=== PATIENT | female | born 1995 | race Caucasian/White ===

== ENCOUNTER 2024-08-17 11:54 | Outpatient (OUT) | payer BC, SELFPAY ==
--- OUTSIDE RECORDS SUMMARY | 2023-04-09 10:30 | XMS_ITS ---
Author Organization [facility] in [place] Address [address] [place] [address] Care Team Providers Care Research Administrator Name Role Phone Crow Craig Primary Care Provider ROMEL CRAIG Unavailable [phone] Allergies No Known Allergies REASON FOR VISIT sinus pressure Medications Medication SIG (Take, Route, Frequency, Duration) Notes Start Date End Date Status Amoxicillin-Pot Clavulanate 875-125 MG 1 tablet Orally every 12 hrs for 10 day(s) 04/09/2023 Active Multivitamin - 1 tablet Orally Once a day Active Social History Tobacco Use: Social History Observation Description Date Details (start date - stop date) Never Smoker NA - NA Tobacco Use/Smoking Question Answer Notes Patient is a nonsmoker Alcohol Screen (Audit-C) Question Answer Notes Did you have a drink contain ing alcohol in the past year? Yes How often did you have 6 or more drinks on one occasion in the past year? Never (0 point) How many drinks did you have on a typical day when you were drinking in the past year? 3 or 4 drinks (1 point) How often did you have a dri nk containing alcohol in the past year? Monthly (2 points) Points 3 Interpretation Positive Problems Problem Type SNOMED Code ICD Code Onset Dates Problem Status W/U Status Risk Notes Problem Acute sinusitis (J01.90) Active confirmed Vital Signs Blood pressure systolic 132 mm Hg 04/09/19 24 Blood pressure diastolic 82 mm Hg 024 Height 62 in 04/09/2023 Weight 204 lbs 04/09/2023 BMI 37.31 kg/m2 04/09/2023 Encounters Encounter Location Date Provider Diagnosis [facility] [address] [place] [facility] [address] 04/09/2023 ROMEL CRAIG Acute sinusitis J01.90 Assessments Encounter Date Diagnosis (ICD Code) Assessment Notes Treatment Notes Treatment Clinical Notes Section Notes 04/09/2023 Acute sinusitis (ICD-10 - J01.90) Plan Of Treatment Medication Medication Name Sig Start Date Stop Date Notes Amoxicillin-Pot Clavulanate 875-125 MG 1 tablet Orally every 12 hrs for 10 day(s) 04/09/2023 Next Appt Details Provider Name:Crow Craig, 02:00:00 PM, [address] [facility], [place], [address], Progress Notes * Monie LEWIS DDOB: (27 yo F)Acc No.[id number]:04/09/2023 Progress Note Patient: Cristal poe Robertmelissa Andrade Provider: Lupe Craig M.D. :1995 A ge:27 Y S ex:Female Date:04/09/2023 Address:[address] [place] [address], [id number] Check In:02:29 PM ESTCheck O ut:03:14 PM EST Subjective: * Chief Complaints: * S inus pressure * HPI: D epression Screening: sinsu pressure- not muc draiage - n o fevers - some dizziness. PHQ-2 (2015 Edition) L ittle interest or pleasure in doing things??Several days F eeling down, depressed, or hopeless? N ot at all T otal Score 1 * ROS: E ENT: hoarseness s ee hpi. G eneral/Constitutional: Sweats: D enies. F atigue d enies. S leep problems d enies. A norexia d enies. M alaise d enies. W eight loss d enies.?Fatigue or Weakness d enies. F ever or Chills d enies. C ardiovascular: Shortness of Breath w/lying flat d enies. L ightheadedness/dizziness d enies. C hest tightness/ heavy pressure d enies. S welling of legs, ankles, or feet d enies. W aking up with shortness of breath d enies. C hest pain denies. P alpitations d enies. W eight gain d enies. R espiratory: Chronic or frequent cough d enies. C oughing up blood?denies. D ifficulty breathing d enies. P roductive cough d enies. S noring?denies. S hortness of breath that awakens from sleep (PND) d enies. C hest pain d enies. S putum production d enies. W heezing d enies. M usculoskeletal: Joint pain d enies. J oint Fluid d enies. B ack pain d enies. K nee pain d enies. N bay pain d enies. J oint Stiffness d enies. M uscle cramps d enies. W eakness of muscles d enies. A rthritis d enies. M uscle aches d enies. P ain in shoulder(s) d enies. S wollen joints d enies. * Active Problem List L30.9 Eczema Modified On:08/24/2022W/U Status:confirmed J01.90 Acute sinusitis Modified On:04/09/2023W/U Status:confirmed * Medical History: * Surgical History: T onsillectomy x2 * Hospitalization/Major Diagno stic Procedure: D enies Past Hospitalization * Family History: F ather: alive, Unknown. M other: alive. B rother(s): alive. S ister(s): alive, asthma, diagnosed with Hypertension. 1 brother(s) , 3 sister(s) - healthy. 2 son(s) . . * Social History: T obacco Use: T obacco Use/Smoking P atient is a n onsmoker D rugs/Alcohol: A lcohol Screen (Audit-C) D id you have a drink containing alcohol in the past year? Y es H ow often did you have 6 or more drinks on one occasion in the past year? N ever (0 point) H ow many drinks did you have on a typical day when you were drinking in the past year? 3 or 4 drinks (1 point) H ow often did you have a drink containing alcohol in the past year? M onthly (2 points) P oints 3 I nterpretation P ositive * Medications: T akingMultivitamin(Multiple Vitamin) - Tablet 1 tablet Orally Once a dayTaking Multivitamin(Multiple Vitamin) - Tablet 1 tablet Orally Once a dayDiscontinuedCephalexin 500 MG Tablet 2 tablet Orally twice a dayCiprofloxacin HCl 500 MG Tablet 1 tablet Orally every 12 hrsDoxycycline Monohydrate 100 MG Capsule 1 capsule Orally BIDpredniSONE 10 MG Tablet 5 tabs X3 D, 4 tab X3 D, 3 tabs X3 D, 2 tabs X3 D, 1 Tab X3 D, 1/2 tab X4 D Orally Once a dayTriamcinolone Acetonide 0.1 % Cream 1 application Externally Twice a dayMedication List reviewed and reconciled with the patientDiscontinued Cephalexin 500 MG Tablet 2 tablet Orally twice a dayDiscontinued Ciprofloxacin HCl 500 MG Tablet 1 tablet Orally every 12 hrsDiscontinued Doxycycline Monohydrate 100 MG Capsule 1 capsule Orally BIDDiscontinued predniSONE 10 MG Tablet 5 tabs X3 D, 4 tab X3 D, 3 tabs X3 D, 2 tabs X3 D, 1 Tab X3 D, 1/2 tab X4 D Orally Once a dayDiscontinued Triamcinolone Acetonide 0.1 % Cream 1 application Externally Twice a dayMedication List reviewed and reconciled with the patient * Allergies: N .K.D.A.no[Allergies Verified] Objective: * Vitals: W t:204 lbs, Ht: 62 in, BP:132/82 mm Hg, BMI:37.31 Index, Ht-cm: 157.48 cm, Wt-k.53 kg. * Examination: P hysical Exam: GENERAL: w ell developed, well nourished, in no acute distress. HEAD: n ormocephalic/atraumatic. EYES: p upils equal, round and reactive to light, conjunctivae and sclerae normal. EARS: n o deformity or lesion of external ear, canals and TM appear normal bilaterally, TM's intact, not inflamed with normal light reflex, hearing grossly normal to conversational speech. NOSE: n o deformity, discharge, inflammation, or lesions.? MOUTH: m ucous membranes moist, normal oropharynx and posterior pharynx without lesions or exudates, tongue normal, dentition normal. NECK: n bay supple, no masses or palpable cervical nodes, trachea midline, thyroid without nodules, masses, tenderness, or enlargement. CHEST: n o chest wall deformity, no chest wall tenderness.? LUNGS: n ormal respiratory effort and clear to auscultation, no wheezes, rales, or rhonchi, good air exchange. CARDIO: r egular rate and rhythm, normal S1 and S2, nor murmur, rub, or gallop. PULSES: n ormal capillary refill. ABDOMEN: s oft, non-distended, non-tender, no masses. MUSCULOSKELETAL: n o deformity or scoliosis noted, normal range of motion, joints normal, no erythema, edema, effusion, or ecchymosis. EXTREMITY: n o clubbing, cyanosis, edema, or deformity with normal ROM in both upper and lower bilateral extremities. NEUROLOGIC: g rossly normal. SKIN: n o rashes, ulcerations, or suspicious lesions. LYMPH NODES: n o cervical adenopathy, nodes normal. MENTAL STATUS: a lert and oriented x3, normal mood and affect. Assessment: * Assessment: 1. A cute sinusitis - J01.90 (Primary) Plan: * Treatment: * Procedure Codes: * Preventive Medicine: Screenings/Counseling: B CT ACTION PLAN Above Normal BMI Follow-up D ietary management education, guidance, and counseling * * Sign off status: Completed Visit Status: C HK (Check Out) true * Provider: Lupe Craig M.D. Date: 0 04/09/2023 Generated for Pj jennings/Klaudia/Adarshitting on: 0 08/17/2024 12:02 PM EDT History and Physical Notes * HPI (History of Present Illness) Category Sub-Category Detail Notes Category Not es Depression Screening PHQ-2 (2015 Edition) Little interest or pleasure in doing things?: Several days Feeling down, depressed, or hopeless?: N ot at all Total Score: 1 Examination Category Sub-Category Detail Notes Category Not es Physical Exam GENERAL: well developed, well nourished, in no acute distress HEAD: normocephalic/atraum atic EYES: pupils equal, round and reactive to light, conjunctivae and sclerae normal EARS: no deformity or lesi on of external ear, canals and TM appear normal bilaterally, TM's intact, not inflamed with normal light reflex, hearing grossly normal to conversational speech NOSE: no deformity, discha rge, inflammation, or lesions MOUTH: mucous membranes alex st, normal oropharynx and posterior pharynx without lesions or exudates, tongue normal, dentition normal NECK: neck supple, no mass es or palpable cervical nodes, trachea midline, thyroid without nodules, masses, tenderness, or enlargement CHEST: no chest wall deform ity, no chest wall tenderness LUNGS: normal respiratory e ffort and clear to auscultation, no wheezes, rales, or rhonchi, good air exchange CARDIO: regular rate and rhy thm, normal S1 and S2, nor murmur, rub, or gallop PULSES: normal capillary ref ill ABDOMEN: soft, non-distended, non-tender, no masses RECTAL: MUSCULOSKELETAL: no deformity or scol iosis noted, normal range of motion, joints normal, no erythema, edema, effusion, or ecchymosis EXTREMITY: no clubbing, cyanosi s, edema, or deformity with normal ROM in both upper and lower bilateral extremities NEUROLOGIC: grossly normal SKIN: no rashes, ulceratio ns, or suspicious lesions LYMPH NODES: no cervical adenopat hy, nodes normal MENTAL STATUS: alert and oriented x 3, normal mood and affect
--- OUTSIDE RECORDS SUMMARY | 2024-03-23 10:00 | XMS_ITS ---
Author Organization [facility] in [place] Address [address] [place] [address] Care Team Providers Care Inside Sales Consultant Name Role Phone Crow Donovan Primary Care Provider Allergies No Known Allergies REASON FOR VISIT wellness- wants to have wellness labs, more in depth labs since turning 28 Medications Medication SIG (Take, Route, Fr equency, Duration) Notes Start Date End Date Status Multivitamin - 1 tablet Orally Once a day Active Melatonin Gummy 15mg Active Mirtazapine 15 MG 1 tablet at bedtime Orally Once a day for 30 day(s) 03/23/2024 Active Social History Tobacco Use: Social History Observation Description Date Details (start date - stop date) Never Smoker NA - NA Tobacco Use/Smoking Question Answer Notes Patient is a nonsmoker Problems Problem Type SNOMED Code ICD Code Onset Dates Problem Status W/U Status Risk Notes Problem Well adult (711964805) Well adult (Z00.00) Active confirmed Vital Signs Blood pressure systolic 122 mm Hg 03/23/19 25 Blood pressure diastolic 90 mm Hg 025 Height 62 in 03/23/2024 Weight 208.8 lbs 03/23/2024 BMI 38.19 kg/m2 03/23/2024 Encounters Encounter Location Date Provider Diagnosis [facility] [address] [place] [address] 03/23/2024 Crow Donovan Well adult Z00.0 0 Assessments Encounter Date Diagnosis (ICD Code) Assessment Notes Treatment Notes Treatment Clinical Notes Section Notes 03/23/2024 Well adult (ICD-10 - Z00.00) Plan Of Treatment Medication Medication Name Sig Start Date Stop Date Notes Mirtazapine 15 MG 1 tablet at bedtime Orally Once a day for 30 day(s) 03/23/2024 Pending Test Test Name Order Date HEMOGLOBIN A1C (GLYCO) 03/23/2024 IRON, TOTAL 03/23/2024 LIPID PANEL (CHOL/TRIG/HDL/LDL) 03/23/19 25 CBC WITH DIFF 03/23/2024 Insulin Level 03/23/2024 THYROID PANEL (T4/TSH/FREE T3) 5 CMP (COMP [place] V[place]ZQUEZ) w/eGFR CKD-EPI 2024 Next Appt Details Provider Name:Crow Donovan, 02:00:00 PM, [address] [facility] [place], [address], Progress Notes * Monie LEWIS DDOB: (28 yo F)Acc No.[id number]:03/23/2024 Progress Note Patient: Monie KAISER Provider: Lupe Donovan ([facility])MD :1995 A ge:28 Y S ex:Female Date:03/23/2024 Address:[address] [address], [address] [id number] Check In:02:03 PM ESTCheck O ut:02:45 PM EST Subjective: * Chief Complaints: * W ellness- wants to have wellness labs, more in depth labs since turning 28 * HPI: D epression Screening: PHQ-2 (2015 Edition) L ittle interest or pleasure in doing things??Several days F eeling down, depressed, or hopeless? N ot at all T otal Score 1 well adult \ gets unuals issues iwth drivingt - harder to focus insomni -0 hao rwiht the melaton discussed stress -0 feeling -. * ROS: E ENT: hearing changes d enies. v isual changes d enies.?non-healing mouth sores d enies. s wollen glands or neck lumps d enies. h oarseness d enies. s ore throat d enies. d ifficulty swallowing d enies. n ose bleeds d enies. n elmer congestion d enies. e ar ache d enies. e ar discharge?denies. r inging in ears d enies. l ight sensitivity d enies. e ye pain d enies. b lurring d enies. e ye irritation d enies. d ouble vision d enies.?vision loss d enies. G eneral/Constitutional: Sweats: D enies. F atigue [...] Status:confirmed J01.90 Acute sinusitis Modified On:04/09/2023W/U Status:confirmed Z00.00 Well adult Modified On:03/23/2024W/U Status:confirmed * Medical History: * Surgical History: T onsillectomy x2 * Hospitalization/Major Diagno stic Procedure: C hild * Family History: F ather: alive, Unknown. M other: alive. B rother(s): alive. S ister(s): alive, asthma, diagnosed with Unspecified essential hypertension. 1 brother(s) , 3 sister(s) - healthy. 2 son(s) . . * Social History: T obacco Use: T obacco Use/Smoking P atient is a n onsmoker * Medications: T akingMelatonin , Notes to Pharmacist: Gummy 15mgMultivitamin(Multiple Vitamin) - Tablet 1 tablet Orally Once a day Taking Melatonin , Notes to Pharmacist: Gummy 15mgTaking Multivitamin(Multiple Vitamin) - Tablet 1 tablet Orally Once a day DiscontinuedAmoxicillin-Pot Clavulanate 875-125 MG Tablet 1 tablet Orally every 12 hrs Medication List reviewed and reconciled with the patientDiscontinued Amoxicillin-Pot Clavulanate 875-125 MG Tablet 1 tablet Orally every 12 hrs Medication List reviewed and reconciled with the patient * Allergies: N .K.D.A.no[Allergies Verified] Objective: * Vitals: W t:208.8lbs, Ht: 62 in, BP:122/90mm Hg, BMI:38.19Index, Ht-cm: 157.48 cm, Wt-k.71 kg. * Examination: P hysical Exam: GENERAL: [...] mood and affect. Assessment: * Assessment: 1. W ell adult - Z00.00 (Primary) Plan: * Treatment: * Procedure Codes: * Preventive Medicine: Screenings/Counseling: B DE ACTION PLAN Above Normal BMI Follow-up D ietary management education, guidance, and counseling * * Sign off status: Completed Visit Status: C HK (Check Out) true * Provider: Lupe Donovan ([facility])MD Date: 0 03/23/2024 Generated for Printi ng/Faharrisong/eTransmitting on: 0 08/17/2024 12:02 PM EDT History and Physical Notes * HPI (History of Present Illness) Category Sub-Category Detail Notes Category Not es Depression Screening PHQ-2 (2015 Edition) Little interest or pleasure in doing things?: Several days well adult \ gets unuals issues iwth drivingt - harder to focus insomni -0 hao rwiht the melaton discussed stress -0 feeling - Feeling down, depressed, or hopeless?: N ot [...]
--- OUTSIDE RECORDS SUMMARY | 2024-05-22 12:21 | XMS_ITS ---
Author Organization [facility] in [place] Address [address] [place] [address] Care Team Providers Care Window Trimmer Name Role Phone Crow Donovan Primary Care Provider REASON FOR VISIT rf mirtazapine Medications Medication SIG (Take, Route, Fr equency, Duration) Notes Start Date End Date Status Mirtazapine 15 MG 1 tablet at bedtime Orally Once a day for 30 days 03/23/2024 Active Encounters Encounter Location Date Provider Diagnosis [facility] [address] [place] [address] 05/22/2024 Crow Donovan Well adult Z00.0 0 Assessments Encounter Date Diagnosis (ICD Code) Assessment Notes Treatment Notes Treatment Clinical Notes Section Notes 05/22/2024 Well adult (ICD-10 - Z00.00) Plan Of Treatment Medication Medication Name Sig Start Date Stop Date Notes Mirtazapine 15 MG 1 tablet at bedtime Orally Once a day for 30 days 03/23/2024 Next Appt Details Provider Name:Crow Donovan, 02:00:00 PM, [address] [place], [address], Progress Notes * Monie LEWIS DDOB: (28 yo F)Acc No.[id number]:05/22/2024 Patient: Cristal PEREZ Monie Andrade :1995 A ge:28 Y S ex:Female Address:[address] [place] [address] * Refills Refill Mirtazapine Tablet, 15 MG, Orally, 30, 1 tablet at bedtime, Once a day, 30 days, Refills=11 * true * Date: Generated for Pj jennings/Klaudia/Brenna on: 0 08/17/2024 12:02 PM EDT
--- OUTSIDE RECORDS SUMMARY | 2024-08-17 12:02 | XMS_ITS | Clinical Summary ---
Author Organization [facility] Address [address] [place] [address] Phone Care Team Providers Care Strategic Development Manager Name Role Phone Ramirez Donovan MD Primary Care Provider [phone] Social History Tobacco Use Types Packs/Day Years Used Date Smoking Tobacco: Never Assessed Comments Unknown Sex and Gender Information Value Date Recorded Sex Assigned at Not on file Legal Sex Female 3:57 AM EST Gender Identity Not on file Sexual Orientation Not on file Plan of Treatment Not on file Care Teams Strategic Development Manager Relationship Specialty Start Date End Date Ramirez Donovan MD [address] [place] [address] PCP - General 05/25/18
--- OUTSIDE RECORDS SUMMARY | 2024-08-17 12:02 | XMS_ITS | Clinical Summary ---
Author Organization [facility] Address [address] [place] [address] Care Team Providers Care Hydrological Technical Officer Name Role Phone Julieta Green MANAGEMENT ARCHITECT - GLASS OR MIRROR INSPECTOR Primary Care Provi iban Allergies No known active allergies Medications Multiple Vitamins-Minera ls (MULTI COMPLETE) CAPS Take by mouth A ctive vitamin D (ERGOCALCIFEROL ) 1.25 MG (55355 UT) CAPS capsuleIndicati ons:Vitamin D deficiency Take 1 capsule by mouth once a week 12 capsule 1 1 Active Additional Information Patient not taking.Reported on 10/22/2022 medroxyPROGESTE Jacky (PROVERA) 10 MG tablet Take 1 tablet by mouth daily 10 tablet 3 Active Additional Information Patient not taking.Reported on 03/23/2024 Active Problems Problem Noted Date Diagnosed Date Migraine headache 11/16/2018 Dental bridge present 11/16/2018 Overview (11/16/2018): Lower metal retainer permanent Resolved Problems Problem Noted Date Diagnosed Date Resolved Date Normal labor and delivery 02/14/2020 Chronic pharyngitis 11/16/2018 08/18/19 20 Hypertrophy of tonsils 11/16/201808/17 Delivery by section of full-term 10/14/2017 10/16/2017 Threatened labor at term LGA (large for gestational age) infant 10/16/2017 Diet controlled gestational diabetes mellitus (GDM) in third trimester 09/05/2022 39 weeks gestation of 10/16/2017 Anemia affecting , antepartum 09/05/2022 Previous section 39 weeks gestation of 09/05/2022 Postoperative pain Immunizations Immunization Administration Dates Next Due TDaP, ADACEL (age 10y-64y), BOOSTRIX (age 10y+), IM, 0.5mL 10/16/2017() Family History Medical History Relation Name Comments No Known Problems Brother x 1 Diabetes Father Cancer Maternal Grandmother No Known Problems Mother Cancer Paternal Grandfather Cancer Paternal Grandmother Asthma Sister x 3 No Known Problems Son x 1 Breast Cancer Neg Hx Relation Name Status Comments Brother x 1 Alive Daughter none Father Alive Maternal Grandmother cervica l cancer Mother Alive Paternal Grandfather Paternal Grandmother Sister x 3 Alive Son x 1 Alive Social History Tobacco Use Types Packs/Day Years Used Date Smoking Tobacco: Never Smokeless Tobacco: Never Tobacco Cessation:Counseling Given: Not Answered Alcohol Use Standard Drinks/Week Comments No 0 (1 standard drink = 0.6 oz pur e alcohol) [facility] Utilities Answer Date Recorded In the past 12 months has e electric, gas, oil, or water company threatened to shut off services in your home? No 03/23/2024 Overall Financial Resource Strain (CARDIA) Answe r Date Recorded How hard is it for you to pa y for the very basics like food, housing, medical care, and heating? Not hard at all 01/13/2021 PHQ-2 Answer Date Recorded PHQ-9 Total Score 0 03/23/2024 Hunger Vital Sign Answer Date Recorded Within the past 12 months, y ou worried that your food would run out before you got the money to buy more. Never true 03/23/19 25 Within the past 12 months, t he food you bought just didn't last and you didn't have money to get more. Never true 03/23/2024 PRAPARE - Transportation Answer Date Re corded In the past 12 months, has l ack of transportation kept you from medical appointments or from getting medications? No 03/02 In the past 12 months, has l ack of transportation kept you from meetings, work, or from getting things needed for daily living? No 03/23/2024 Housing Stability Vital Sign Answer Zeb e Recorded In the last 12 months, was t here a time when you were not able to pay the mortgage or rent on time? No 03/23/2024 In the past 12 months, how m any times have you moved where you were living? 1 03/23/2024 At any time in the past 12 m [facility], were you homeless or living in a intermediate (including now)? No 03/23/2024 Food Insecurity Answer Date Recorded Within the past 12 months, y ou worried that your food would run out before you got the money to buy more. 1 03/23/2024 Within the past 12 months, t he food you bought just didn't last and you didn't have money to get more. 1 03/23/2024 Comments No Sex and Gender Information Value Date Recorded Sex Assigned at Not on file Legal Sex Female 9:13 AM EST Gender Identity Not on file Sexual Orientation Not on file Last Filed Vital Signs Vital Sign Reading Time Taken Comments Blood Pressure 122/78 03/23/2024 9:49 AM EST Pulse 93 03/23/2024 9:49 AM EST Temperature 36.9 C (98.4 F) 01/13/2021 3:56 PM EST Respiratory Rate 21 10/20/2020 6:00 AM EDT Oxygen Saturation 98% 01/13/2021 3:56 PM EST Inhaled Oxygen Concentration - - Weight 94.3 kg (208 lb) 03/23/2024 9:49 AM EST Height 157.5 cm (5' 2 ) 03/23/2024 9:49 AM EST Body Mass Index 38.04 03/23/2024 9:49 AM EST Plan of Treatment Health Maintenance Due Date Last Done Comments Varicella vaccine (1 of 2 - 13+ 2-dose series) 2006 DTaP/Tdap/Td vaccine (1 - Tdap) 2012 Hepatitis B vaccine (1 of 3 - 19+ 3-dose series) 2012 COVID-19 Vaccine (1 - 2023- season) 2023 Flu vaccine (Season Ended) 2024 Depression Screen 03/23/2025 03/23/2024, 03/23/2024 Pap smear 03/23/2027 03/23/2024, 08/30, 07/07/2019, Additional history exists Cervical cancer screen 03/23/2029 HPV (without or with Pap) 03/23/2029 03/23/2024 HIV screen Completed 04/02/2017 Hepatitis C screen Completed 07/07/2019 HPV vaccine Aged Out No longer eligi ble based on patient's age to complete this topic Hepatitis A vaccine Aged Out No longe r eligible based on patient's age to complete this topic Hib vaccine Aged Out No longer eligi ble based on patient's age to complete this topic Meningococcal (ACWY) vaccine Aged Out No longer eligible based on patient's age to complete this topic Meningococcal B vaccine Aged Out No l onger eligible based on patient's age to complete this topic Pneumococcal 0-49 years Vaccine Aged Out No longer eligible based on patient's age to complete this topic Polio vaccine Aged Out No longer elig ible based on patient's age to complete this topic Procedures Procedure Name Priority Date/Time Associated Diagnosis Comments HUMAN PAPILLOMAVIRUS (HPV) DNA PROBE THIN PREP HIGH RISK Routine 03/23/2024 3:53 PM EST PAP SMEAR Routine 03/23/2024 3:25 PM EST Special screening examination for human papillomavirus (HPV) HEPATITIS C ANTIBODY Routine 07/07/2019 4:05 PM EDT Amenorrhea HIV-1,-2 W/REFLEX TO HIV-1 WESTERN BLOT Routine 04/02/2017 10:42 AM EST Less than 8 weeks gestation of from Last 3 Months or Most Recently Relevant to Health Maintenance Results * Human papillomavirus (HPV) DNA probe thin prep high risk (03/23/2024 3:53 PM EST) HPV Genotype 16 Not Detected Not Detected 03/28/2024 9:18 PM EST [facility] HPV Type 18 Not Detected Not Detected 03/28/2024 9:18 PM EST [facility] HPVOH (Other Types) Not Detected Not Detected 03/28/2024 9:18 PM EST [facility] Comment:*Includes 31,33,35,3 9,45,51,52,56,58,59,66,68 genotypes HPV Comment See below 03/23/2024 3:52 PM EST [facility] Comment: This is information only. See above for results. HPV other genotypes: 31,33,35,39,45,51,52,56,58,59,66,68 The Milli Tiana HPV Test is a qualitative in-vitro test for the detection of Human Papillomavirus that provides specific genotyping information for HPV Types 16 and 18, while concurrently detecting 12 other high-risk HPV types 31,33,35, 39,45,51,52,56,58,59,66,68 in a pooled result. The test utilizes amplification of target DNA by Polymerase Chain Reaction (PCR) and nucleic acid hybridization. . 03/23/2024 3:53 PM EST 03/28/2024 6:29 AM EST us Jose M Ceballos DO HEMATOLOGY ORDERABLES Final Result [facility] [address] [place] [address] [facility] [address] [place] [address] * PAP SMEAR (03/23/2024 3:25 PM EST) CERVICAL SWAB / Unknown 03/23/2024 3:25 PM EST 03/24/2024 9:41 AM EST Narrative [facility] - 04/04/2024 10:56 AM EST [facility] [address] [place] [address] FINAL CYTOLOGY PAP REPORT Patient Name: MONIE LEWIS Accession No: [id number] Age Sex: 1995 28 Y / F Location: [id number] Account No: [id number] Collected: 03/23/2024 Med Rec No: [id number] Received: 03/24/2024 Attend Phys: JOSE M CEBALLOS Completed: 04/04/2024 Perform Phys: JOSE M CEBALLOS SPECIMEN ADEQUACY: Satisfactory for Evaluation. Endocervical cells/transformation zone component present. GENERAL CATEGORIZATION: Negative for Intraepithelial Lesion or Malignancy Specimen: THINPREP LIQUID BASE IMAGED DIAGNOSTIC History: Source: Thin Prep Site: Cervical History: Previous abnormal smear? No History of CA? None given This specimen was rescreened as part of our Airbrush Painter Program. Lab Order#: [id number] Test Name Collected D&T Result HPV Type 16 03/23/2024 Not Detected HPV Type 18 03/23/2024 Not Detected HPVOH (Other types) 03/23/2024 Not Detected HPV Comment 03/23/2024 See below Test Comment: This is information only. See above for results. HPV other genotypes: 31,33,35,39,45,51,52,56,58,59,66,68 The Milli Tiana HPV Test is a qualitative in-vitro test for the detection of Human Papillomavirus that provides specific genotyping information for HPV Types 16 and 18, while concurrently detecting 12 other high-risk HPV types 31,33,35, 39,45,51,52,56,58,59,66,68 in a pooled result. The test utilizes amplification of target DNA by Polymerase Chain Reaction (PCR) and nucleic acid hybridization. CPT: Technical: 19946 X1 Professional: 75715 X1 Screened by: JOHN DALLAS(ASCP) Ellis LINDSAY M.D. 04/04/2024 Electronically signed out by Cervical cytology is a screening test primarily for squamous cancers and precursors and has associated false negative and positive results. New technologies such as liquid based sampling may decrease but not eliminate all false negative results. Please refer to established guidelines All gynecologic cytology specimen processing and diagnostic testing is processed and screened using a Thin Prep Mental Health Nurse at [facility] [address] [place] [address] All abnormal gynecologic interpretation is performed at [facility], unless otherwise noted in the report. Page 1 of 1 us Jose M Ceballos DO PATHOLOGY/CYTOLOGY ORDERABLE S Final Result [facility] [address] [place] [address], [facility] [phone] * Hepatitis C Antibody (07/07/2019 4:05 PM EDT) Hep C Ab Interp Non-reacti ve 07/07/2019 5:18 PM EDT [facility] BLOOD SPECIMEN / Unknown 07/07/2019 4:05 PM EDT 07/07/2019 4:35 PM EDT Jose M Ceballos DO IMMUNOLOGY ORDERABLES Final Result [facility] [address] [place] [address], [facility] [phone] * HIV-1,-2 w/Reflex to HIV-1 Western Blot (04/02/2017 10:42 AM EST) HIV-1/HIV-2 Ab Negative Negative 04/04/2017 12:49 PM EST [facility] Comment: Based on the non-reactive anti-HIV (ZAID) screen, the HIV Western blot is not indicated and therefore not performed. INTERPRETIVE INFORMATION: HIV-1,-2 w/Reflex to HIV-1 Western Blot This assay should not be used for blood donor screening, associated re-entry protocols, or for screening Human Cells, Tissues and Cellular and Tissue-Based Products (HCT/P). Performed by [facility], [address] [place] [id number] [email or web address], Eric Reilly MD - Lab. Director BLOOD SPECIMEN / Unknown 04/02/2017 10:42 AM EST 04/02/2017 2:24 PM EST Jose M Ceballos DO HEMATOLOGY ORDERABLES Final Result [facility] [address] [place] [address], [facility] [phone] [facility] [address] [place] [id number] [phone] from Last 3 Months or Most Recently Relevant to Health Maintenance Insurance [place] [employer] [facility] Advance Directives * Full Code (Latest Code Status on File) Date Activated Date Inactivated Comments 02/14/2020 8:54 AM 02/16/2020 5:04 PM * Full Code Date Activated Date Inactivated Comments 02/14/2020 6:07 AM 02/14/2020 8:54 AM * Full Code Date Activated Date Inactivated Comments 11/22/2018 12:43 PM 11/22/2018 4:13 PM * Full Code Date Activated Date Inactivated Comments 10/14/2017 12:10 PM 10/16/2017 5:50 PM * Full Code Date Activated Date Inactivated Comments 10/14/2017 5:45 AM 10/14/2017 12:04 PM Care Teams Hydrological Technical Officer Relationship Specialty Start Date End Date Julieta Green, MANAGEMENT ARCHITECT - GLASS OR MIRROR INSPECTOR [address] [place] [address] PCP - General Family Medicine 06/13/20
--- OUTSIDE RECORDS SUMMARY | 2024-08-17 12:02 | XMS_ITS | Patient Health Record ---
Author Organization [facility] [place] Address [address] [place] [address] Care Team Providers Care Lan Specialist Name Role Phone Crow Donovan Primary Care Provider Allergies No Known Allergies Reason For Referral No Information Medications Medication SIG (Take, Route, Fr equency, Duration) Notes Start Date End Date Status Multivitamin - 1 tablet Orally Once a day Active Melatonin Gummy 15mg Active Mirtazapine 15 MG 1 tablet at bedtime Orally Once a day for 30 days 03/23/2024 Active Social History Tobacco Use: Social [...] Problem Status W/U Status Risk Notes Problem Eczema (85300079) Eczema (L30.9) Active confirmed Problem Acute sinusitis (40424585) Acute sinusitis (J01.90) Active confirmed Problem Well adult (558000772) Well adult (Z00.00) Active confirmed Vital Signs Blood pressure diastolic 90 mm Hg 03/23/2024 Height 62 in 03/23/2024 Blood pressure systolic 122 mm Hg 03/23/2024 Weight 208.8 lbs 03/23/2024 BMI 38.19 kg/m2 03/23/2024 Encounters Encounter Location Date Provider Diagnosis [facility] [address] [place] [address] 05/22/2024 Crow Donovan Well adult Z00.0 0 [facility] [address] [place] [address] 03/23/2024 Crow Donovan Well adult Z00.0 0 Assessments Encounter Date Diagnosis (ICD Code) Assessment Notes Treatment Notes Treatment Clinical Notes Section Notes 03/23/2024 Well adult (ICD-10 - Z00.00) 05/22/2024 Well adult (ICD-10 - Z00.00) Plan Of Treatment Pending Test Test Name Order Date HEMOGLOBIN A1C (GLYCO) 03/23/2024 IRON, TOTAL 03/23/2024 LIPID PANEL (CHOL/TRIG/HDL/LDL) 03/23/19 25 CBC WITH DIFF 03/23/2024 Insulin Level 03/23/2024 THYROID PANEL (T4/TSH/FREE T3) 5 CMP (COMP [place] V[place]) w/eGFR CKD-EPI 2024 Next Appt Details Provider Name:Crow Donovan, 02:00:00 PM, [address] [place], [address], Insurance Providers Payer Name Payer Address Payer Phone Subscriber Number Group Number Insured Name Patient Relationship to Insured Coverage Start Date Coverage End Date [employer] ACCESS PPO PLUS LOCAL PLAN [address] [place] [address] [id number] [facility] Self - patient is the insured 3 Medications Administered Medication Instructions Date of Administration Dosage Notes Kenalog-40 08/24/2022 80 mg 80 Medical (General) History Medical History History ICD Code Eczema L30.9 Surgical History Surgery Date(Month/Year) x2 Tonsillectomy Hospitalization History Reason Date(Month/Year) Child
--- OUTSIDE RECORDS SUMMARY | 2024-08-17 12:02 | XMS_ITS | Encounter Summary ---
Author Organization [facility] Address [address] [place] [address] Care Team Providers Care Oreman Name Role Phone Julieta Green RAILROAD SIGNAL OPERATOR - MANAGEMENT PROFESSIONALS Primary Care Provi iban Encounter Details Date Type Department Care Team (Late st Contact Info) Description 02/27/2020 FollowUp Telephone Encounter [facility] [address] [place], [place] [id number] Radha Issa, RN Social History Tobacco Use Types Packs/Day Years Used Date Smoking Tobacco: Never Smokeless Tobacco: Never Alcohol Use Standard Drinks/Week Comments No 0 (1 standard drink = 0.6 oz pur e alcohol) PHQ-2 Answer Date Recorded PHQ-2 Score 0 06/01/2018 Hunger Vital Sign Answer Date Recorded Worried About Running Out of Food in the Last Ye ar Never true 04/06/2019 Ran Out of Food in the Last Year Never true 04/06/2019 PRAPARE - Transportation Answer Date Re corded Lack of Transportation (Medical) No 04/06/2019 Lack of Transportation (Non-Medical) No 04/06/2019 Comments No Sex and Gender Information Value Date Recorded Sex Assigned at Not on file Legal Sex Female 9:13 AM EST Gender Identity Not on file Sexual Orientation Not on file COVID-19 Exposure Response Date Recorded In the last month, have you been in contact with someone who was confirmed or suspected to have Coronavirus / COVID-19? No / Unsure 02/27/2020 2:51 PM EST documented as of this encounter Plan of Treatment Not on file documented as of this encounter Visit Diagnoses Not on filedocumented in this encounter Care Teams Oreman Relationship Specialty Start Date End Date Julieta Green, RAILROAD SIGNAL OPERATOR - MANAGEMENT PROFESSIONALS [address] [facility] [address] [place] [address] PCP - General Family Medicine 06/13/20 documented as of this encounter
--- OUTSIDE RECORDS SUMMARY | 2024-08-17 12:02 | XMS_ITS | Encounter Summary ---
Author Organization [facility] Address [address] [place] [address] Care Team Providers Care Tapper Balance Wheel Screw Hole Name Role Phone Julieta Grene STUD DAIRY CATTLE FARMER - INSTRUMENT LENS INSPECTOR Primary Care Provi iban Encounter Details Date Type Department Care Team (Late st Contact Info) Description 10/18/2017 FollowUp Telephone Encounter [facility] Labor [facility] Delivery [address] [place] [address] Maryanne Mendoza RN Social History Tobacco Use Types Packs/Day Years Used Date Smoking Tobacco: Never Smokeless Tobacco: Never Alcohol Use Standard Drinks/Week Comments No 0 (1 standard drink = 0.6 oz pur e alcohol) Comments No Sex and Gender Information Value Date Recorded Sex Assigned at Not on file Legal Sex Female 9:13 AM EST Gender Identity Not on file Sexual Orientation Not on file documented as of this encounter Plan of Treatment Not on file documented as of this encounter Visit Diagnoses Not on filedocumented in this encounter Additional Health Concerns Infection Onset Date Last Indicated Resolved Time COVID-19 (Rule Out) 02/14/2020 02/14/2020 02/14/20 20 7:02 AM EST documented as of this encounter Care Teams Tapper Balance Wheel Screw Hole Relationship Specialty Start Date End Date Julieta Green, LAQUITA - INSTRUMENT LENS INSPECTOR [address] [facility] [address] [place] [address] PCP - General Family Medicine 06/13/20 documented as of this encounter
--- OUTSIDE RECORDS SUMMARY | 2024-08-17 12:02 | XMS_ITS | Clinical Summary ---
Author Organization [facility] Address [address] [place] [address] Care Team Providers Care Tile Installer Name Role Phone Unavailable Primary Care Provider Unavailabl e Allergies No known active allergies Medications No known medications Social History Tobacco Use Types Packs/Day Years Used Date Smoking Tobacco: Never Assessed Comments Unknown Sex and Gender Information Value Date Recorded Sex Assigned at Not on file Legal Sex Female 7:29 PM EDT Gender Identity Not on file Sexual Orientation Not on file Last Filed Vital Signs Vital Sign Reading Time Taken Comments Blood Pressure - - Pulse 100 12/01/2023 6:45 PM EDT Temperature 36.6 C (97.9 F) 12/01/2023 6:45 PM EDT Respiratory Rate - - Oxygen Saturation 98% 12/01/2023 6:45 PM EDT Inhaled Oxygen Concentration - - Weight 86.2 kg (190 lb) 12/01/2023 6:45 PM EDT Height - - Body Mass Index - - Plan of Treatment Not on file Insurance [facility]
[2024-08-17 12:25] LABS: Basophils Percent Auto 0.5 % (0.2-2.0); Eosinophils Absolute Auto 0.1 10^3/uL (0.0-0.7); Eosinophils Percent Auto 1.4 % (0.9-7.0); Hematocrit 40.2 % (36.0-48.0); Hemoglobin 12.9 g/dL (12.0-16.0); Immature Granulocytes Abs Auto 0.02 10^3/uL (0.00-0.03); Immature Granulocytes Pct Auto 0.3 % (0.0-0.5); Lymphocytes Absolute Auto 2.7 10^3/uL (1.2-3.8); Mean Corpuscular HGB Conc 32.1 g/dL (29.9-35.2); Mean Corpuscular Hemoglobin 25.5 pg (26.7-34.0); Mean Corpuscular Volume 79.4 fL (81.0-99.0); Mean Platelet Volume 10.8 fL (9.5-13.5); Monocytes Absolute Auto 0.3 10^3/uL (0.3-0.8); Monocytes Percent Auto 4.3 % (1.7-12.0); Neutrophils Absolute Auto 3.1 10^3/uL (1.4-6.5); Neutrophils Percent Auto 50.5 % (43.0-75.0); Platelet Count 267 10^3/uL (150-450); Red Blood Count 5.06 10^6/uL (4.20-5.40); Red Cell Distribution Width 16.4 % (11.0-15.0); White Blood Count 6.2 10^3/uL (4.0-11.0)
[2024-08-17 12:33] LABS: Estimated Average Glucose 105 mg/dL; Glycohemoglobin A1C 5.3 % (4.5-6.2)
[2024-08-17 13:06] LABS: Alanine Aminotransferase 16 U/L (14-59); Albumin Level 3.9 g/dL (3.4-5.0); Alkaline Phosphatase 84 U/L (46-116); Anion Gap 17.1; Aspartate Amino Transferase 12 U/L (15-37); BUN Creatinine Ratio 23.8; Bilirubin Total 0.3 mg/dL (0.2-1.0); Carbon Dioxide 22.8 mmol/L (21.0-32.0); Chloride 104 mmol/L (98-107); Chol HDL Ratio 2.1; Cholesterol 166 mg/dL (<=200); Estimated GFR (African America >60 (>=60 mL/min/1.73m^2); Estimated GFR (Non-African Ame >60 (>=60 mL/min/1.73m^2); Free T3 2.76 pg/mL (2.18-3.98); Globulin 4.1 g/dL; Glucose 94 mg/dL (74-106); HDL Cholesterol 80 mg/dL (40-60); Potassium 3.9 mmol/L (3.5-5.1); Sodium 140 mmol/L (136-145); Thyroid Stimulating Hormone 0.487 uIU/mL (0.358-3.740); Triglycerides 67 mg/dL (<=150); VLDL CHOLESTEROL 13.4 mg/dL
[2024-08-18 05:07] LABS: Insulin 10.6 uIU/mL (2.6-24.9)
== END 2024-08-17 11:55 | disposition home or self-care (01) ==
LOC: LAB 12:00
PROVIDERS: PCP Family Medicine; Visit Provider Family Medicine
DX: Z00.00 Encounter for general adult medical examination without abnormal findings (principal)
CPT/HCPCS: 36415; 80053; 80061; 83036; 83525; 83540; 84436; 84443; 84481; 85025